=== PATIENT | male | born 1945 | race Caucasian/White ===

== ENCOUNTER 2017-07-02 15:09 | Inpatient (IN) | payer MEDICARE, OTHER ==
[~2017-07-02] VITALS: Ht 182.9 cm; Wt 57.2 kg
[~2017-07-02 15:09] MED LIST: ADVAIR 100-501 EACH; CLOPIDOGREL75 MG PO; COMBIVENT RESPIM4 GM IH; CRESTOR10 MG PO; DOXYCYCLINE HY100 MG PO; METOPROLOL TART50 MG PO; PEPCID20 MG PO; PREDNISONE20 MG PO
[2017-07-02] MEDS ORDERED: ALBUTEROL/IPRATROPIUM 3 ML NEB NEB ONE (15:45)
[2017-07-02] MEDS ORDERED: IPRATROPIUM BROMIDE 0.02% 2.5 ML NEB NEB ONE (15:45)
[2017-07-02] MEDS ORDERED: METHYLPREDNISOLONE SOD SUCC 125 MG/2ML VIAL IV ONE (15:45)
[2017-07-02 15:50] LABS: BILIRUBIN,URINE NEGATIVE (NEGATIVE); KETONES,URINE TRACE (NEGATIVE); LEUKOCYTE ESTERASE ,URINE NEGATIVE (NEGATIVE); NITRITE,URINE NEGATIVE (NEGATIVE); URINE UROBILINOGEN 0.2 mg/dL (0.2 - 1)
[2017-07-02 15:54] LABS: CLARITY,URINE SL CLOUDY (CLEAR); COLOR,URINE YELLOW (YELLOW); PROTEIN,URINE DIPSTICK TRACE (NEGATIVE)
[2017-07-02 15:55] LABS: BASOPHILS % 0.3 % (0.0-1.0); EOSINOPHILS # (AUTO) 0.1 (0.0-0.4); EOSINOPHILS % 0.9 % (0.0-6.0); HEMATOCRIT 45.5 % (38.2-49.6); HEMOGLOBIN 15.8 g/dL (14.0-18.0); LYMPHOCYTES # (AUTO) 1.4 (1.0-3.2); LYMPHOCYTES % 11.7 % (18.0-39.1); MEAN CORPUSCULAR HEMOGLOBIN 32.3 pg (28-32); MEAN CORPUSCULAR HGB CONC 34.7 g/dL (31-35); MONOCYTES # (AUTO) 1.2 (0.2-0.8); MONOCYTES % 10.5 % (4.4-11.3); NEUTROPHILS # (AUTO) 8.9 (2.1-6.9); NEUTROPHILS % 76.2 % (38.7-80.0); PLATELET COUNT 137 x10e3/uL (140-360); RED BLOOD COUNT 4.89 x10e6/uL (4.3-5.7); RED CELL DISTRIBUTION WIDTH 14.2 % (11.7-14.4)
--- NOTE | 2017-07-02 15:59 | Diagnostic Imaging Report ---
PROCEDURE: CHEST SINGLE (PORTABLE) COMPARISON: None. INDICATIONS: CHEST PAIN FINDINGS: The lungs are hyperinflated with flattening of the hemidiaphragms. Patchy and linear opacity projects over the left lung base, likely atelectasis. No consolidation. Postsurgical changes of the mediastinum with an otherwise normal heart size. No overt pulmonary edema. No acute osseous abnormalities. CONCLUSION: Pulmonary hyperinflation suggestive of emphysema. Patchy opacities in the left lung base likely reflect atelectasis, though the differential diagnosis includes aspiration pneumonitis or pneumonia in the appropriate clinical setting. Dictated by: Patrick Mojica M.D. on 07/02/2017 at 16:07 Electronically approved by: Patrick Mojica M.D. on 07/02/2017 at 16:07
[2017-07-02 16:11] LABS: RBC,URINE 0-5 /HPF (0-5)
[2017-07-02 16:13] LABS: INR 0.93; PROTHROMBIN TIME 12.9 seconds (11.9-14.5)
[2017-07-02 16:14] LABS: PARTIAL THROMBOPLASTIN TIME 37.5 seconds (23.8-35.5)
[2017-07-02 16:18] LABS: ALANINE AMINOTRANSFERASE 13 IU/L (0-55); ALBUMIN 4.1 g/dL (3.5-5.0); ALBUMIN/GLOBULIN RATIO 1.1 (0.8-2.0); ALKALINE PHOSPHATASE 56 IU/L (40-150); ANION GAP 15.4 mmol/L (8-16); BLOOD UREA NITROGEN 9 mg/dL (7-26); BUN/CREATININE RATIO 12 (6-25); CALCIUM 8.9 mg/dL (8.4-10.2); CARBON DIOXIDE 23 mmol/L (22-29); CHLORIDE 98 mmol/L (98-107); CREATINE KINASE 220 IU/L (30-200); CREATININE, SERUM 0.73 mg/dL (0.72-1.25); EST GLOMERULAR FILTRATION RATE > 60 ML/MIN (60-); GLUCOSE 96 mg/dL (74-118); POTASSIUM 4.4 mmol/L (3.5-5.1); SODIUM 132 mmol/L (136-145)
[2017-07-02] MEDS ORDERED: SODIUM CHLORIDE FLUSH 10 ML SYR INJ PRN (17:45)
[2017-07-02] MEDS ORDERED: METHYLPREDNISOLONE SOD SUCC 40 MG/ML VIAL IV SCH (18:00)
[2017-07-02] MEDS ORDERED: ACETAMINOPHEN 325 MG TAB PO ONE (18:45)
[2017-07-02] MEDS ORDERED: METOPROLOL SUCC25 MG PO (18:47)
[2017-07-02] MEDS ORDERED: ASPIR 8181 MG PO (18:47)
[2017-07-02] MEDS ORDERED: PRAVASTATIN SOD10 MG PO (18:47)
[2017-07-02] MEDS: ALBUTEROL SULF 0.083% NEB SOLN 3 ML NEB NEB SCH (19:00)
[2017-07-02] MEDS: IPRATROPIUM BROMIDE 0.02% 2.5 ML NEB NEB SCH (19:00)
[2017-07-02 22:41] VITALS: BP 117/67
[2017-07-03] VITALS: BP 119/69
[2017-07-03] MEDS: ALBUTEROL SULF 0.083% NEB SOLN 3 ML NEB NEB SCH ×5 (00:20→20:40)
[2017-07-03] MEDS: IPRATROPIUM BROMIDE 0.02% 2.5 ML NEB NEB SCH ×5 (00:20→20:40)
[2017-07-03 04:00] VITALS: BP 133/73
[2017-07-03] MEDS: METHYLPREDNISOLONE SOD SUCC 40 MG/ML VIAL IV SCH ×3 (06:00→12:45)
[2017-07-03 08:23] VITALS: BP 119/66
[2017-07-03 08:34] LABS: ABG HCO3 18 mmol/L (23-28); ABG PCO2 29 mmHg (41-51); ABG PH 7.41 (7.31-7.41); ABG PO2 67 mmHg (80-105)
[2017-07-03] MEDS ORDERED: BENZONATATE 100 MG CAP PO PRN (09:30)
--- NOTE | 2017-07-03 10:06 | History and Physical ---
CHIEF COMPLAINT: Hypoxia, acute asthma, COPD, cough, fever, and pneumonia. HISTORY: Patient is a 71-year-old male, frail who came to the emergency room with increasing shortness of breath. The patient has basically hypoxia. Oxygen saturation was low. The patient required oxygen support. He has also required multiple nebulizer treatments. The patient was having cough, fever and wheezing on examination. The patient is with progressive decline with progressive weight loss. PAST MEDICAL HISTORY: COPD, asthma, peripheral vascular disease, coronary disease, hyperlipidemia, hypertension, recurrent pneumonia, history of bypass surgery. PAST SURGICAL HISTORY: Coronary artery bypass surgery in 2006. SOCIAL HISTORY: Patient smoked a pack per day previously and now half a pack per day of tobacco usage. No alcohol. FAMILY HISTORY: Noncontributory. REVIEW OF SYSTEMS: Patient is weak. He is a little confused. Short of breath. Chest pain with cough. No abdominal pain. No gross focal deficit moving extremities. ALLERGIES: NO KNOWN ALLERGIES. HOME MEDICATIONS: Aspirin, Plavix, Advair, Combivent, metoprolol, pravastatin. PHYSICAL EXAMINATION VITAL SIGNS: Temperature was 98, blood pressure 199/111, pulse rate 135, respirations 14. GENERAL: The patient is not in acute distress. HEENT: Normocephalic, atraumatic and anicteric. NECK: Supple grossly. PULMONARY: Bilateral coarses and rhonchi with diminished breath sounds at the bases. CARDIOVASCULAR: S1 and S2. Tachycardia. ABDOMEN: Soft. Cachexia. EXTREMITIES: No cyanosis or edema. NEUROLOGIC: No focal deficit. LABORATORY: WBC is 12, hemoglobin 15.8, hematocrit 45.5, and platelets is 137,000. Chemistry: Sodium is 132, potassium 4.4, chloride 98, bicarb 23, BUN 9, creatinine 0.7, glucose is 96. Urinalysis is 2+ blood. INR is 0.9. IMAGING: Chest x-ray with left lower lobe pneumonia with pulmonary hyperplasia with patchy opacity in the left base of the lung, atelectasis and pneumonitis. IMPRESSION 1. Acute exacerbation of chronic obstructive pulmonary disease associated with hypoxia, increasing shortness of breath, wheezing, fever, and chest pain. 2. Pneumonia mostly with a left lower lobe in the bases and pneumonitis. 3. Progressive decline with adult failure to progressive and progressive weight loss: Oxygen dependent. PLAN: Admit the patient for IV antibiotics. Nebulizer treatment. Consultation with director of people. PT and OT. DVT prophylaxis. Repeat lab work. Antitussive medications. Monitor the patient closely on oxygen support. Job#: [id number] [place]
[2017-07-03] MEDS: DOXYCYCLINE 100MG/NS 100ML 100 ML IV SCH ×2 (10:30→13:30)
[2017-07-03 11:10] LABS: ABG HCO3 21 mmol/L (23-28); ABG PCO2 28 mmHg (41-51); ABG PH 7.47 (7.31-7.41); ABG PO2 52 mmHg (80-105)
[2017-07-03 12:21] VITALS: BP 125/65
[2017-07-03] MEDS ORDERED: SODIUM CHLORIDE 0.9% 250ML 250 ML ONE ×2 (13:06→20:36)
[2017-07-03] MEDS ORDERED: DIPHENHYDRAMINE HCL 25 MG CAP PO STA (13:59)
[2017-07-03] MEDS ORDERED: ALBUTEROL SULF 0.083% NEB SOLN 3 ML NEB NEB SCH (14:00)
[2017-07-03] MEDS: PIPER-TAZ 3.375 GM/NS 50 ML 50 ML IV SCH ×2 (14:00→20:52)
[2017-07-03] MEDS ORDERED: DIPHENHYDRAMINE HCL 25 MG CAP PO PRN (14:00)
[2017-07-03] MEDS ORDERED: DIPHENHYDRAMINE HCL INJ 1 ML ONE (14:07)
--- NOTE | 2017-07-03 16:49 | Consultation ---
DATE OF CONSULTATION: July 03, 2017 PULMONARY CONSULTATION A patient of Dr. Rehman. A charming 72-year-old gentleman with a history of severe dyspnea on exertion at home, sent by ambulance by his roommates. Denies sputum production. Has had cough for 4 days prior to admission. Says his primary care physician is in [place]. He did not recall his name, but according to records it is Dr. Michelle Vincent. ALLERGIES: HE HAS NO KNOWN ALLERGIES. He has been short of breath since childhood but has persisted in smoking a pack a day for 50 years, now cutting back to half. FAMILY HISTORY: Positive for coronary disease, diabetes and hypertension, arthritis in the mother. He had bypass surgery in 2006. Denies having had an NH. Worked in [employer]. Born in [place], [place]. PHYSICAL EXAMINATION GENERAL: A tall, thin white male in no acute distress, looking his stated age, claiming that he has tried Chantix, Wellbutrin and NicoDerm without effect. VITAL SIGNS: Temperature 98.4, pulse 99, respirations 19, blood pressure 125/70. HEAD: Normocephalic, atraumatic. Some temporal wasting. LUNGS: Markedly diminished breath sounds bilaterally. HEART: Regular rhythm. ABDOMEN: Nontender. EXTREMITIES: Nonedematous. Chest x-ray reveals hyperinflated lung kapoor, vague right lower lobe infiltrate. T-max is 100.7. White count is 15.8. This patient has not required home oxygen. His medications at home included aspirin, Plavix, metoprolol, Advair, Combivent and pravastatin. Plan is cigarette smoking cessation. Optimize bronchodilators. Continue antibiotics for pneumonia. A CT scan is pending. Will resume patient's inhaled corticosteroids. Thank you for this kind referral. Job#: [id number] [place]
[2017-07-03 16:55] VITALS: BP 125/73
[2017-07-03] MEDS: AZITHROMYCIN 250 MG TAB PO SCH (17:50)
[2017-07-03] MEDS: METOPROLOL SUCCINATE 25 MG TAB XL PO SCH (18:00)
[2017-07-03] MEDS: ENOXAPARIN SOD INJ 40 MG/0.4 ML SYR SC SCH (18:00)
[2017-07-03] MEDS: GUAIFENESIN 600MG/DEXTROMETHORPHAN 30MG TABSR PO SCH (18:00)
--- NOTE | 2017-07-03 18:06 | Diagnostic Imaging Report ---
PROCEDURE: CT CHEST WITHOUT CONTRAST CT scan of the chest WITHOUT intravenous contrast, using standard protocol. TECHNIQUE: The chest was scanned utilizing a multidetector helical scanner from the apex to the level of the adrenal glands. No IV contrast was administered per physician's request. Coronal and sagittal multiplanar reformations were obtained. COMPARISON: Patients [facility], , CHEST 2 VIEWS, 09/04/2015, 23:16. INDICATIONS: SOB FINDINGS: Lines/tubes: Lungs and Airways: Severe bilateral centrilobular emphysematous changes. Confluent linear scarring and calcific changes in the right upper lobe (series 3, image 38). Bilateral lower lobe bronchial wall thickening and mild bronchiectasis, with associated bilateral groundglass opacities, some of which coalesce into nodules/small focal consolidations (for example series 3, images 116-125). No other areas of consolidation. No masses or other nodules. Central airways are clear, without endobronchial lesions. Pleura: No effusion, or pneumothorax. Heart and mediastinum: The thyroid is unremarkable. Heart size is normal. No pericardial effusion. Atherosclerotic calcification of the aortic valve, coronary arteries and thoracic aorta. Aorta is non-aneurysmal. The main pulmonary artery is normal in caliber. Soft tissues: Lymph nodes: No mediastinal, hilar, or axillary adenopathy. Multiple subcentimeter, nonspecific mediastinal nodes, which are likely reactive. Abdomen: Limited views of the upper abdomen show no abnormality within the visualized liver, spleen, pancreas, right kidney. A linear 3-4 mm calcific density in the left kidney is felt to represent a vascular calcification rather than a stone (series 2, image 143). The adrenal glands are normal. Bones: No acute bony abnormalities. Generalized osteopenia. Degenerative disc changes in the thoracic spine. No lytic lesions. Midline sternotomy wires. IMPRESSION: 1. severe bilateral centrilobular emphysematous changes. 2. Findings in bilateral lower lobes may represent pneumonia or aspiration, in the appropriate acute clinical setting. Alternatively, this may represent confluent areas of scarring, secondary to chronic bronchitis. No prior films are available for comparison. Lucius Cooper M.D. Dictated by: Lucius Cooper M.D. on 07/03/2017 at 18:13 Electronically approved by: Lucius Cooper M.D. on 07/03/2017 at 18:13
[2017-07-03] MEDS: BUDESONIDE/FORMOTEROL 160/4.5MCG INHALER INH SCH (19:00)
[2017-07-03 19:50] VITALS: BP 122/69
[2017-07-03] MEDS ORDERED: METHYLPREDNISOLONE SOD SUCC 40 MG/ML VIAL IV SCH (21:00)
[2017-07-03] MEDS: ATORVASTATIN 10 MG TAB PO SCH (21:44)
[2017-07-04] MEDS: ALBUTEROL SULF 0.083% NEB SOLN 3 ML NEB NEB SCH ×6 (00:50→20:50)
[2017-07-04] MEDS: IPRATROPIUM BROMIDE 0.02% 2.5 ML NEB NEB SCH ×5 (00:50→20:50)
[2017-07-04 01:37] VITALS: BP 140/74
[2017-07-04 05:02] VITALS: BP 114/63
[2017-07-04] MEDS: PIPER-TAZ 3.375 GM/NS 50 ML 50 ML IV SCH ×3 (06:38→22:00)
[2017-07-04] MEDS: BUDESONIDE/FORMOTEROL 160/4.5MCG INHALER INH SCH ×2 (07:00→19:00)
[2017-07-04 07:01] LABS: BASOPHILS % 0.1 % (0.0-1.0); EOSINOPHILS % 0.1 % (0.0-6.0); HEMATOCRIT 40.8 % (38.2-49.6); HEMOGLOBIN 14.1 g/dL (14.0-18.0); LYMPHOCYTES # (AUTO) 0.7 (1.0-3.2); LYMPHOCYTES % 4.2 % (18.0-39.1); MEAN CORPUSCULAR HEMOGLOBIN 31.8 pg (28-32); MEAN CORPUSCULAR HGB CONC 34.6 g/dL (31-35); MEAN CORPUSCULAR VOLUME 91.9 fL (81-99); MONOCYTES # (AUTO) 0.8 (0.2-0.8); MONOCYTES % 5.1 % (4.4-11.3); NEUTROPHILS # (AUTO) 14.1 (2.1-6.9); NEUTROPHILS % 90.1 % (38.7-80.0); PLATELET COUNT 123 x10e3/uL (140-360); RED BLOOD COUNT 4.44 x10e6/uL (4.3-5.7)
[2017-07-04 07:26] LABS: ANION GAP 16.9 mmol/L (8-16); BLOOD UREA NITROGEN 15 mg/dL (7-26); BUN/CREATININE RATIO 21 (6-25); CALCIUM 9.5 mg/dL (8.4-10.2); CARBON DIOXIDE 24 mmol/L (22-29); CHLORIDE 98 mmol/L (98-107); EST GLOMERULAR FILTRATION RATE > 60 ML/MIN (60-); GLUCOSE 143 mg/dL (74-118); POTASSIUM 4.9 mmol/L (3.5-5.1); SODIUM 134 mmol/L (136-145)
[2017-07-04 08:23] LABS: THYROID STIMULATING HORMONE 1.093 uIU/mL (0.350-4.940)
[2017-07-04 08:34] VITALS: BP 115/65
[2017-07-04] MEDS: GUAIFENESIN 600MG/DEXTROMETHORPHAN 30MG TABSR PO SCH ×2 (09:23→17:06)
[2017-07-04] MEDS: METOPROLOL SUCCINATE 25 MG TAB XL PO SCH ×2 (09:23→17:07)
[2017-07-04] MEDS: METHYLPREDNISOLONE SOD SUCC 40 MG/ML VIAL IV SCH ×2 (09:23→22:02)
[2017-07-04] MEDS: CLOPIDOGREL BISULFATE 75 MG TAB PO SCH (09:23)
[2017-07-04] MEDS: ASPIRIN 81 MG CHEW TAB PO SCH (09:23)
[2017-07-04] MEDS: AZITHROMYCIN 250 MG TAB PO SCH (09:23)
[2017-07-04 12:00] VITALS: BP 114/77
[2017-07-04 16:16] VITALS: BP 117/62
[2017-07-04] MEDS: ENOXAPARIN SOD INJ 40 MG/0.4 ML SYR SC SCH (17:07)
[2017-07-04 20:00] VITALS: BP 134/68
[2017-07-04] MEDS: ATORVASTATIN 10 MG TAB PO SCH (22:02)
[2017-07-04] MEDS ORDERED: SODIUM CHLORIDE 0.9% 250ML 250 ML ONE (22:08)
[2017-07-05] VITALS (7 sets, daily range): BP systolic 117–158; BP diastolic 61–76
[2017-07-05] MEDS: ALBUTEROL SULF 0.083% NEB SOLN 3 ML NEB NEB SCH (03:50)
[2017-07-05] MEDS: IPRATROPIUM BROMIDE 0.02% 2.5 ML NEB NEB SCH (03:50)
[2017-07-05] MEDS: PIPER-TAZ 3.375 GM/NS 50 ML 50 ML IV SCH ×3 (05:18→21:27)
[2017-07-05] MEDS: BUDESONIDE/FORMOTEROL 160/4.5MCG INHALER INH SCH ×2 (07:00→19:00)
[2017-07-05] MEDS: ALBUTEROL/IPRATROPIUM 3 ML NEB NEB SCH ×3 (07:55→20:15)
[2017-07-05] MEDS: AZITHROMYCIN 250 MG TAB PO SCH (08:35)
[2017-07-05] MEDS: ASPIRIN 81 MG CHEW TAB PO SCH (08:35)
[2017-07-05] MEDS: METOPROLOL SUCCINATE 25 MG TAB XL PO SCH ×2 (08:35→17:17)
[2017-07-05] MEDS: METHYLPREDNISOLONE SOD SUCC 40 MG/ML VIAL IV SCH ×2 (08:35→20:28)
[2017-07-05] MEDS: CLOPIDOGREL BISULFATE 75 MG TAB PO SCH (08:35)
[2017-07-05] MEDS: GUAIFENESIN 600MG/DEXTROMETHORPHAN 30MG TABSR PO SCH ×2 (08:35→17:16)
[2017-07-05] MEDS ORDERED: ALBUTEROL/IPRATROPIUM 3 ML NEB NEB PRN (08:45)
--- NOTE | 2017-07-05 09:27 | Pulmonary Function Test ---
DATE OF STUDY: July 04, 2017 Severe obstructive pulmonary disease. Forced vital capacity 2.3 L, 49% of predicted. FEV1 1.3 L, 38%. FEV1/FVC ratio 56%. FEF25/75 33%. Severe restrictive pulmonary disease. Concomitant restriction cannot be excluded. No significant improvement following inhalation of bronchodilators. Job#: [id number] RI
[2017-07-05] MEDS: ENOXAPARIN SOD INJ 40 MG/0.4 ML SYR SC SCH (17:17)
[2017-07-05] MEDS: ATORVASTATIN 10 MG TAB PO SCH (20:29)
[2017-07-06] VITALS: BP 136/81
[2017-07-06] MEDS: ALBUTEROL/IPRATROPIUM 3 ML NEB NEB SCH ×2 (00:30→07:57)
[2017-07-06 04:00] VITALS: BP 149/71
[2017-07-06] MEDS: PIPER-TAZ 3.375 GM/NS 50 ML 50 ML IV SCH (05:48)
[2017-07-06] MEDS: BUDESONIDE/FORMOTEROL 160/4.5MCG INHALER INH SCH (07:00)
[2017-07-06 07:26] LABS: BASOPHILS % 0.1 % (0.0-1.0); HEMATOCRIT 36.9 % (38.2-49.6); LYMPHOCYTES # (AUTO) 1.4 (1.0-3.2); MEAN CORPUSCULAR HEMOGLOBIN 31.9 pg (28-32); MEAN CORPUSCULAR HGB CONC 35.2 g/dL (31-35); MEAN CORPUSCULAR VOLUME 90.4 fL (81-99); MONOCYTES # (AUTO) 0.9 (0.2-0.8); NEUTROPHILS # (AUTO) 7.2 (2.1-6.9); NEUTROPHILS % 75.5 % (38.7-80.0); PLATELET COUNT 117 x10e3/uL (140-360); RED BLOOD COUNT 4.08 x10e6/uL (4.3-5.7); RED CELL DISTRIBUTION WIDTH 13.6 % (11.7-14.4)
[2017-07-06 07:57] LABS: ANION GAP 10.8 mmol/L (8-16); BLOOD UREA NITROGEN 12 mg/dL (7-26); BUN/CREATININE RATIO 20 (6-25); CALCIUM 8.2 mg/dL (8.4-10.2); CARBON DIOXIDE 24 mmol/L (22-29); CHLORIDE 103 mmol/L (98-107); EST GLOMERULAR FILTRATION RATE > 60 ML/MIN (60-); GLUCOSE 101 mg/dL (74-118); POTASSIUM 3.8 mmol/L (3.5-5.1); SODIUM 134 mmol/L (136-145)
[2017-07-06] MEDS: METHYLPREDNISOLONE SOD SUCC 40 MG/ML VIAL IV SCH (08:41)
[2017-07-06] MEDS: CLOPIDOGREL BISULFATE 75 MG TAB PO SCH (08:41)
[2017-07-06] MEDS: GUAIFENESIN 600MG/DEXTROMETHORPHAN 30MG TABSR PO SCH (08:41)
[2017-07-06] MEDS: ASPIRIN 81 MG CHEW TAB PO SCH (08:41)
[2017-07-06] MEDS: METOPROLOL SUCCINATE 25 MG TAB XL PO SCH (08:42)
[2017-07-06] MEDS: AZITHROMYCIN 250 MG TAB PO SCH (08:42)
[2017-07-06] MEDS ORDERED: LEVAQUIN500 MG PO (10:08)
[2017-07-06] MEDS ORDERED: CHERATUSSIN AC118 ML PO (10:09)
--- NOTE | 2017-07-06 10:27 | Discharge Summary ---
PRIMARY CARE PHYSICIAN: EMAIL MARKETING COORDINATOR: Dr. Patrick Yousif FINAL DIAGNOSES 1. Acute exacerbation of chronic obstructive pulmonary disease. 2. Left lower lobe pneumonia. 3. Status post hypoxia. 4. Medical debility. 5. Severe emphysema. SUMMARY: A 72-year-old male, smoker with severe emphysema came in with left lower lobe pneumonia, community-acquired, and also acute exacerbation of COPD with hypoxia. Patient was placed on nebulizer treatment and steroids. He did much better. He underwent pulmonary function test that shows consistent with obstructive restrictive pattern. The patient is stable at this time. He will go home today. Follow up with his family doctor, and Dr. Patrick Yousif in approximately 1 week. DISCHARGE MEDICATIONS: Includin. Resume home medications. 2. Jocelyn-tussin p.r.n. for cough. 3. Levaquin 500 mg daily for 5 days. 4. Medrol Dosepak. 5. Nebulizer and DuoNeb. Patient is on oxygen currently. Patient is stable and discharged back home today. Follow up as an outpatient as instructed. Job#: [id number] [place]
[2017-07-06 10:33] VITALS: BP 161/72
[2017-07-06 11:00] LABS: LYMPHOCYTES % (MANUAL) 7 % (19-48); MONOCYTES % (MANUAL) 7 % (3.4-9.0); NEUTROPHILS % (MANUAL) 82 % (40-74)
[2017-07-06 11:02] LABS: ANISOCYTOSIS SLIGHT
[2017-07-06 11:03] LABS: HYPOCHROMASIA SLIGHT; PLATELET ESTIMATE SLIGHTLY DECREASED; PLATELET MORPHOLOGY COMMENT FEW LARGE; RBC MORPHOLOGY COMMENT NORMAL
== END 2017-07-06 11:12 | disposition home or self-care (01) | DRG 190 ==
LOC: ER 15:09 → ERHOLD 18:14 → IMCU 20:24 → ERHOLD 20:24 → IMCU 21:51 → OBSVTOIN 07-03 13:38 → MED/SURG 07-04 16:55
PROVIDERS: ADMIT Internal Medicine; ATTEND Internal Medicine
DX: J44.0 Chronic obstructive pulmonary disease with (acute) lower respiratory infection (principal); J18.9 Pneumonia, unspecified organism; J44.1 Chronic obstructive pulmonary disease with (acute) exacerbation; Z72.0 Tobacco use; R09.02 Hypoxemia; I25.10 Atherosclerotic heart disease of native coronary artery without angina pectoris; Z95.1 Presence of aortocoronary bypass graft; I11.9 Hypertensive heart disease without heart failure; Z71.6 Tobacco abuse counseling; R53.81 Other malaise
CPT/HCPCS: 36415; 36600; 71010; 71250; 80048; 80053; 81001; 82550; 82553; 82805; 83880; 84443; 84484; 85025; 85610; 85730; 87040; 87086; 87400; 93005; 94060; 94640; 94660; 96376; 99284; G0378; J1200; J1650; J2543; J2920; J2930; J7050